=== PATIENT | male | born 1990 | race Hispanic/Latino ===

== ENCOUNTER 2017-10-26 15:50 | Emergency (ER) | payer OTHER ==
[~2017-10-26] VITALS: Ht 172.7 cm; Wt 90.9 kg
[2017-10-26] MEDS ORDERED: NAPROSYN500 MG PO (18:47)
[2017-10-26 19:00] VITALS: BP 138/81
== END 2017-10-26 19:00 | disposition home or self-care (01) | DRG 563 ==
LOC: ED 15:50
DX: S63.502A Unspecified sprain of left wrist, initial encounter (principal); S63.501A Unspecified sprain of right wrist, initial encounter; V89.2XXA Person injured in unspecified motor-vehicle accident, traffic, initial encounter

== ENCOUNTER 2020-05-14 09:37 | Emergency (ER) | payer SELFPAY ==
[~2020-05-14] VITALS: Ht 172.7 cm; Wt 100.0 kg
[~2020-05-14 09:37] MED LIST: NAPROSYN500 MG PO
[2020-05-14] MEDS ORDERED: PREDNISONE20 MG PO (11:32)
[2020-05-14] MEDS ORDERED: DECADRON4 MG PO (11:45)
[2020-05-14 11:46] VITALS: BP 134/78
== END 2020-05-14 11:50 | disposition home or self-care (01) | DRG 177 ==
LOC: ED 09:37
DX: U07.1 COVID-19 (principal); J12.82 Pneumonia due to coronavirus disease 2019